=== PATIENT | male | born 1960 | race Two or more races ===

== ENCOUNTER 2025-02-19 15:58 | Emergency (ER) | payer OTHER ==
[~2025-02-19] VITALS: Ht 172.7 cm; Wt 89.8 kg
[~2025-02-19 15:58] MED LIST: CAPOTEN50 MG; LIPITOR40 MG
[2025-02-19] MEDS ORDERED: KETOROLAC TROMETHAMINE 30 MG VIAL IM STA (17:10)
[2025-02-19] MEDS ORDERED: KETOROLAC TROMETHAMINE 30 MG VIAL ONE (17:13)
== END 2025-02-19 20:32 | disposition home or self-care (01) ==
LOC: ER 15:58
DX: M25.472 Effusion, left ankle (principal); M25.471 Effusion, right ankle